=== PATIENT | female | born 1950 | race Caucasian/White ===

== ENCOUNTER 2018-03-26 12:41 | Emergency (ER) | payer MEDICARE, OTHER ==
--- NOTE | 2018-03-26 14:07 | RAD ---
4 VIEWS RIGHT KNEE: Date: 03/26/18 COMPARISON: None. HISTORY: Right knee pain and swelling. FINDINGS: Four views of the right knee show the patient to be status post right knee arthroplasty without perih ardware lucency or fracture. No knee effusion is seen. There is no evidence of acute fracture or disl ocation. IMPRESSION: Status post right knee arthroplasty without evidence of acute osseous abnormality. POS: [facility]
--- NOTE | 2018-03-26 14:21 | RAD ---
LEFT KNEE FOUR VIEWS: History: Left knee pain. FINDINGS/IMPRESSION: Degenerative changes are present. No acute fracture, dislocation, or bony destruction is identified. Chondrocalcinosis is present. POS: [facility]
[2018-03-26] MEDS ORDERED: Ketorolac Tromethamine 30 MG/ML VIAL ONE (14:54)
[2018-03-26 16:01] LABS: #Eosinphils 0.1 thou/uL (0.0-0.7); #Lymphocytes 1.1 thou/uL (1.20-3.40); #Monocytes 0.8 thou/uL (0.11-0.59); #Neutrophils 9.7 thou/uL (1.40-6.50); %Basophils 0.4 % (0.0-1.0); %Eosinophils 1.1 % (0.0-10.0); %Lymphocytes 9.2 % (21.0-51.0); %Monocytes 6.4 % (0.0-10.0); Hemoglobin 12.8 g/dL (12.0-16.0); Mean Corpuscular HGB CONC 33.5 g/dL (32.0-36.0); Mean Corpuscular Hemoglobin 34.1 pg (27.0-31.0); Mean Platelet Volume 6.6 fL (7.4-10.4); Platelet Count 286 thou/uL (130-400); RBC Distribution Width 11.1 % (11.5-14.5); Red Blood Cell (RBC) Count 3.76 mill/uL (4.20-5.40); White Blood Cell (WBC) Count 11.7 thou/uL (4.8-10.8)
[2018-03-26 16:22] LABS: ALT (SGPT) 19 U/L (8-55); AST (SGOT) 35 U/L (5-34); Albumin 3.9 g/dL (3.4-4.8); Alkaline Phosphatase 92 U/L (40-150); Anion Gap 13 mmol/L (10-20); BUN (Urea Nitrogen) 18 mg/dL (9.8-20.1); Bilirubin, Total 0.5 mg/dL (0.2-1.2); Calc. Creatinine Clearance 0 mL/min (70-130); Carbon Dioxide 24 mmol/L (23-31); Chloride 105 mmol/L (98-107); Estimated GFR-MDRD 80; Globulin 2.7 g/dL (2.4-3.5); Glucose 100 mg/dL (80-115); Potassium 3.9 mmol/L (3.5-5.1); Protein, Total 6.6 g/dL (6.0-8.3); Sodium 138 mmol/L (136-145)
== END 2018-03-26 19:19 ==
LOC: ERS 12:41
DX: M25.562 Pain in left knee (principal); F03.90 Unspecified dementia, unspecified severity, without behavioral disturbance, psychotic disturbance, mood disturbance, and anxiety; G43.909 Migraine, unspecified, not intractable, without status migrainosus; K21.9 Gastro-esophageal reflux disease without esophagitis; F41.9 Anxiety disorder, unspecified; Z87.891 Personal history of nicotine dependence; Z79.899 Other long term (current) drug therapy
CPT/HCPCS: 36415; 80053; 85025; 96372; J1885

== ENCOUNTER 2018-07-15 12:35 | Emergency (ER) | payer MEDICARE, OTHER | END 2018-07-15 15:29 | LOC: ERS 12:35 | DX: Z04.3 Encounter for examination and observation following other accident (principal); G30.9 Alzheimer's disease, unspecified; F02.80 Dementia in other diseases classified elsewhere, unspecified severity, without behavioral disturbance, psychotic disturbance, mood disturbance, and anxiety; F98.8 Other specified behavioral and emotional disorders with onset usually occurring in childhood and adolescence; F43.10 Post-traumatic stress disorder, unspecified; F41.9 Anxiety disorder, unspecified; G43.909 Migraine, unspecified, not intractable, without status migrainosus; M19.90 Unspecified osteoarthritis, unspecified site; K21.9 Gastro-esophageal reflux disease without esophagitis; Z87.891 Personal history of nicotine dependence; Z79.899 Other long term (current) drug therapy; W07.XXXA Fall from chair, initial encounter | CPT/HCPCS: 99284 ==

== ENCOUNTER 2018-07-24 21:55 | Emergency (ER) | payer MEDICARE | END 2018-07-24 22:33 | disposition home or self-care (01) | LOC: ERS 21:55 | DX: S01.21XA Laceration without foreign body of nose, initial encounter (principal); S61.213A Laceration without foreign body of left middle finger without damage to nail, initial encounter; F03.90 Unspecified dementia, unspecified severity, without behavioral disturbance, psychotic disturbance, mood disturbance, and anxiety; F43.10 Post-traumatic stress disorder, unspecified; F41.9 Anxiety disorder, unspecified; F32.9 Major depressive disorder, single episode, unspecified; F98.8 Other specified behavioral and emotional disorders with onset usually occurring in childhood and adolescence; Z79.899 Other long term (current) drug therapy; W20.8XXA Other cause of strike by thrown, projected or falling object, initial encounter | CPT/HCPCS: 12001; 12011 ==

== ENCOUNTER 2018-10-08 21:35 | Emergency (ER) | payer MEDICARE, OTHER ==
[2018-10-08 22:35] LABS: #Lymphocytes 1.5 thou/uL (1.20-3.40); #Monocytes 0.5 thou/uL (0.11-0.59); #Neutrophils 6.5 thou/uL (1.40-6.50); %Basophils 0.4 % (0.0-1.0); %Eosinophils 0.5 % (0.0-10.0); %Monocytes 6.1 % (0.0-10.0); %Neutrophils 76.1 % (42.0-75.0); Hemoglobin 11.2 g/dL (12.0-16.0); Mean Corpuscular HGB CONC 31.2 g/dL (32.0-36.0); Mean Corpuscular Hemoglobin 29.2 pg (27.0-31.0); Mean Corpuscular Volume 93.7 fL (78.0-98.0); Mean Platelet Volume 6.2 fL (7.4-10.4); Platelet Count 552 thou/uL (130-400); RBC Distribution Width 13.8 % (11.5-14.5); Red Blood Cell (RBC) Count 3.82 mill/uL (4.20-5.40); White Blood Cell (WBC) Count 8.6 thou/uL (4.8-10.8)
[2018-10-08 22:55] LABS: ALT (SGPT) 10 U/L (8-55); AST (SGOT) 20 U/L (5-34); Albumin 3.4 g/dL (3.4-4.8); Alkaline Phosphatase 82 U/L (40-150); Anion Gap 17 mmol/L (10-20); BUN (Urea Nitrogen) 26 mg/dL (9.8-20.1); Bilirubin, Total 0.5 mg/dL (0.2-1.2); Calc. Creatinine Clearance 0 mL/min (70-130); Calcium 9.4 mg/dL (7.8-10.44); Carbon Dioxide 24 mmol/L (23-31); Chloride 109 mmol/L (98-107); Estimated GFR-MDRD 81; Globulin 3.9 g/dL (2.4-3.5); Glucose 101 mg/dL (80-115); Potassium 3.9 mmol/L (3.5-5.1); Protein, Total 7.3 g/dL (6.0-8.3); Sodium 146 mmol/L (136-145)
--- NOTE | 2018-10-08 23:03 | RAD ---
RADIOGRAPH CHEST 1 VIEW: 10/08/18 HISTORY: 68-year-old female with acute chest pain due to fall. FINDINGS: There are no air space densities, pulmonary edema, pneumothorax, or cardiomegaly. The lateral costop hrenic angles are sharp. Interstitial markings are diffusely prominent. This is probably chronic. IMPRESSION: No acute cardiopulmonary findings. augusto [] POS: [facility]
--- NOTE | 2018-10-08 23:04 | RAD ---
RADIOGRAPH PELVIS 1 VIEW: 10/08/18 HISTORY: 68-year-old female status post acute pelvic trauma due to fall. FINDINGS: No displaced fracture is identified. However, the overlying bowel gas and stool could obscure a fract ure, especially involving the sacrum. No dislocation. IMPRESSION: No fracture identified. POS: [facility]
--- NOTE | 2018-10-08 23:16 | CT ---
CT BRAIN NONCONTRAST: DATE: 10/08/18 at 10:45 p.m. HISTORY: 68-year-old female status post acute head trauma from fall. COMPARISON: 10/01/16 FINDINGS: No acute, displaced calvarial fracture. No acute subdural, epidural, subarachnoid, and intra-axial, h emorrhage. No mass effect, midline shift or extra-axial fluid collection. Diffuse atrophy of the brain. Moderate dilation of lateral and third ventricles, greater than on the previous CT. Greater degree of mild periventricular low attenuation, which could represent chronic is chemic white matter changes. IMPRESSION: 1. No acute intracranial findings. 2. Interval worsening of ventriculomegaly since 10/01/16. This is probably due to interval worsen ing of atrophy of the brain. The other possibility is normal pressure hydrocephalus. Clinical correla tion is recommended (is there urinary incontinence, gait apraxia, and/or dementia?). ALYSSA Davis POS: [facility]
--- NOTE | 2018-10-08 23:17 | CT ---
CT CERVICAL SPINE NONCONTRAST: 10/08/18 HISTORY: 68-year-old female status post acute cervical trauma from fall. FINDINGS: There are no jumped or perched facets. There is no evidence of acute fracture. The vertebral body h eights are maintained. There is no prevertebral soft tissue swelling. IMPRESSION: No evidence of acute fracture or acute traumatic subluxation. augusto [] POS: [facility]
--- NOTE | 2018-10-08 23:24 | CT ---
CT MAXILLOFACIAL NONCONTRAST: 10/08/18 HISTORY: 68-year-old female status post acute facial trauma from fall. FINDINGS: There is a comminuted and minimally displaced fracture of the distal aspect of the nasal bones. This is of indeterminate age. No other fracture is visualized. The orbits are clear. There is a small depe ndent layer of material, either fluid or mucosal thickening, at the posterior aspect of the sphenoid sinus. The rest of the paranasal sinuses, and the bilateral tympanomastoid cavities are clear. No dis location of TMJs. IMPRESSION: 1. Minimally displaced nasal bone fracture of indeterminate age. 2. No other fracture. POS: [facility]
[2018-10-09 00:09] LABS: Bilirubin Small (Negative); Blood, Urine Moderate (Negative); Clarity TURBID (Clear); Glucose, Urine (Dipstick) Negative (Negative); Leukocyte Large (Negative); Nitrite Negative (Negative); Protein, Urine (Dipstick) 30 mg/dL (Neg-Trace); Specific Gravity, Urine 1.021 (1.002-1.036)
[2018-10-09 00:12] LABS: Bacteria/HPF 4+ HPF (None Seen); Squamous Epithelial 0-3 HPF (0-3)
[2018-10-09 00:25] LABS: Yeast-AUWi Flag 950.4 (0-25.0)
[2018-10-09 00:31] LABS: Hyaline Casts/LPF NONE SEEN LPF (0-3 Hyaline); Other Casts/LPF None Seen LPF (0-3 Hyaline); Yeast-All Forms None Seen HPF (None Seen)
== END 2018-10-09 02:00 ==
LOC: ERS 21:35
DX: S00.81XA Abrasion of other part of head, initial encounter (principal); N30.00 Acute cystitis without hematuria; G43.909 Migraine, unspecified, not intractable, without status migrainosus; K21.9 Gastro-esophageal reflux disease without esophagitis; G47.00 Insomnia, unspecified; G51.0 Bell's palsy; F43.10 Post-traumatic stress disorder, unspecified; F41.9 Anxiety disorder, unspecified; F03.90 Unspecified dementia, unspecified severity, without behavioral disturbance, psychotic disturbance, mood disturbance, and anxiety; F32.9 Major depressive disorder, single episode, unspecified; F98.8 Other specified behavioral and emotional disorders with onset usually occurring in childhood and adolescence; Z87.891 Personal history of nicotine dependence; Z79.899 Other long term (current) drug therapy; W06.XXXA Fall from bed, initial encounter
CPT/HCPCS: 36415; 51701; 70450; 70486; 71045; 72125; 72170; 80053; 81003; 81015; 85025